=== PATIENT | female | born 1975 | race Caucasian/White ===

== ENCOUNTER 2016-09-11 08:27 | Outpatient (CLI) ==
[2016-04-09 10:50] VITALS: BMI 30.2
--- NOTE | 2016-09-11 09:06 | DI ---
EXAM: Two views of the left hip. History: Left hip pain. Findings: No acute fracture or dislocation. No abnormal calcifications or radiopaque foreign abhishek s. The left hip joint space is preserved. Impression: No acute osseous abnormality and no significant degenerative changes.
== END 2016-09-11 08:28 | disposition home or self-care (01) ==
LOC: RAD 08:27
PROVIDERS: ATTEND Emergency Medicine
DX: M25.552 Pain in left hip (principal)